=== PATIENT | female | born 2000 | race American Indian/Alaskan Native ===

== ENCOUNTER 2020-08-26 02:53 | Emergency (ER) | payer MEDICAID ==
[2020-08-26] MEDS ORDERED: ACETAMINOPHEN 325 MG TAB ONE (03:34)
[2020-08-26] MEDS ORDERED: ACETAMINOPHEN 325 MG TAB PO ONE (03:34)
[2020-08-26 04:23] LABS: Basophils % (Auto) 0.3 % (0.0-1.8); Eosinophils # (Auto) 0.1 K/mm3 (0.0-0.4); Eosinophils % (Auto) 0.9 % (0.0-4.3); Hematocrit 38.7 % (30.3-42.9); Hemoglobin 13.3 gm/dl (10.1-14.3); Lymphocytes # (Auto) 1.6 K/mm3 (1.2-5.4); Lymphocytes % (Auto) 12.4 % (13.4-35.0); Mean Corpuscular HGB Conc 34 % (30-34); Mean Corpuscular Volume 91 fl (79-97); Monocytes # (Auto) 0.8 K/mm3 (0.0-0.8); Monocytes % (Auto) 6.2 % (0.0-7.3); Platelet Count 269 K/mm3 (140-440); Red Blood Count 4.27 M/mm3 (3.65-5.03); Red Cell Distribution Width 12.5 % (13.2-15.2)
[2020-08-26] MEDS ORDERED: ONDANSETRON 4 MG/2 ML INJ IV ONE (04:45)
[2020-08-26] MEDS ORDERED: MORPHINE 4 MG/1 ML INJ IV ONE (04:45)
[2020-08-26] MEDS ORDERED: SODIUM CHLORIDE 0.9% 1000 ML 1,000 ML IV ONE (04:45)
--- NOTE | 2020-08-26 05:07 | Ultrasound Report ---
ULTRASOUND OBSTETRIC INDICATION / CLINICAL INFORMATION: vaginal bleeding. Clinical Gestational Age (GA): 13 weeks TECHNIQUE: Transabdominal. COMPARISON: None available. FINDINGS: No gestational sac is present within the uterus. The endometrium is markedly heterogeneous with ill d efined endometrium. A portion of the endometrial stripe is measured at 7 mm, but the majority of the endometrium is not clearly defined. No associated hypervascularity associated with the endometrium. ADNEXA: Either ovary identified due to overlying bowel gas. No obvious adnexal mass. FREE FLUID: Trace free fluid identified in the cul-de-sac. ADDITIONAL FINDINGS: None. IMPRESSION: 1. No IUP present. 2. Marked heterogeneity of the endometrium. This is more than likely secondary to hemorrhage. Retaine d products is thought to be less likely due to the lack of any visible vascularity on Doppler exam. 3. Limited evaluation of the adnexa due to excessive bowel gas. The ovaries were not visualized.. Signer Name: Ashleigh Lopez MD Signed: 08/26/2020 5:03 AM Workstation Name: [id number]
--- NOTE | 2020-08-26 06:22 | Emergency Department Report ---
ED Female HPI - General Chief complaint: Vaginal Bleeding Stated complaint: 13 WEEKS /BLEEDING Source: patient Mode of arrival: Ambulatory Limitations: No Limitations - History of Present Illness Initial comments: Patient is a A0 20-year-old -[place] female who is approximately 13 weeks gestation and who presents to the ED with complaint of acute onset pe rsistent severe pelvic pain with heavy vaginal bleeding for the last 8 hours. Patient states that the bleeding has been especially heavier in the last 4 hours despite using heavier pads to contain the bleeding. Patient states that she took Tylenol prior to arrival in the ED with no relief. Patient denies nausea, vomiting, dizziness, syncope, headache, dysuria, urinary frequency and urgency, diarrhea, fever, chills, chest pain or shortness of breath, loss of consciousness or back pain. MD Complaint: vaginal bleeding, pelvic pain -: Sudden, hour(s) (8) Location: suprapubic, other (vaginal) Radiation: non-radiating Severity: severe Severity scale (0 -10): 8 Quality: cramping, sharp Consistency: constant Improves with: none Worsens with: movement Are you Now?: Yes (Approx 13 weeks gestation) Associated Symptoms: denies other symptoms, vaginal bleeding, abdominal pain. denies: vaginal discharge, nausea/vomiting, fever/chills, headaches, loss of appetite, dysuria, hematuria, rash, seizure, shortness of breath, syncope, weakness - Related Data Sexually active: Yes : 1 Para: 0 A: 0 Previous Rx's Medication Instructions Recorded Last Taken Type Acetaminophen/Codeine [Tylenol 1 - 2 tab PO Q6H PRN #15 tab 08/26/20 Unknown Rx /Codeine # 3 tab] Ondansetron [Zofran Odt] 4 mg PO Q6H PRN #15 tab.rapdis 08/26/20 Unknown Rx Allergies Allergy/AdvReac Type Severity Reaction Status Date / Time No Known Allergies Allergy Verified 08/26/20 04:25 ED Review of Systems ROS: Stated complaint: 13 WEEKS /BLEEDING Other details as noted in HPI Constitutional: denies: chills, fever Eyes: denies: eye pain, eye discharge, vision change ENT: denies: ear pain, throat pain Respiratory: denies: cough, shortness of breath, wheezing Cardiovascular: denies: chest pain, palpitations Endocrine: no symptoms reported Gastrointestinal: abdominal pain (suprapubic). denies: nausea, vomiting, diarrhea, hematemesis Genitourinary: abnormal menses (heavy vaginal bleeding). denies: urgency, dysuria, frequency, discharge Musculoskeletal: denies: back pain, joint swelling, arthralgia Skin: denies: rash, lesions Neurological: denies: headache, weakness, paresthesias Psychiatric: denies: anxiety, depression Hematological/Lymphatic: denies: easy bleeding, easy bruising ED Past Medical Hx - Past Medical History Previous Medical History?: No - Surgical History Past Surgical History?: No - Social History Smoking Status: Never Smoker Substance Use Type: None - Medications Home Medications: Home Medications Medication Instructions Recorded Confirmed Last Taken Type Acetaminophen/Codeine [Tylenol 1 - 2 tab PO Q6H PRN #15 tab 08/26/20 Unknown Rx /Codeine # 3 tab] Ondansetron [Zofran Odt] 4 mg PO Q6H PRN #15 tab.rapdis 08/26/20 Unknown Rx ED Physical Exam - General Limitations: No Limitations General appearance: alert, in no apparent distress - Head Head exam: Present: atraumatic, normocephalic, normal inspection - Eye Eye exam: Present: normal appearance, PERRL, EOMI Pupils: Present: normal accommodation - ENT ENT exam: Present: normal exam, normal orophraynx, mucous membranes moist, TM's normal bilaterally, normal external ear exam - Neck Neck exam: Present: normal inspection, full ROM - Respiratory Respiratory exam: Present: normal lung sounds bilaterally. Absent: respiratory distress, wheezes, rales, rhonchi, chest wall tenderness, decreased breath sounds - Cardiovascular Cardiovascular Exam: Present: normal rhythm, tachycardia, normal heart sounds. Absent: systolic murmur, diastolic murmur, rubs, gallop - GI/Abdominal GI/Abdominal exam: Present: soft, tenderness (Palpable suprapubic tenderness), normal bowel sounds. Absent: guarding, rebound, hyperactive bowel sounds, hypoactive bowel sounds - External exam: Present: normal external exam Speculum exam: Present: normal speculum exam, vaginal bleeding Bi-manual exam: Present: normal bi-manual exam, other (Female histopath tech Ms Bolden present ) - Extremities Exam Extremities exam: Present: normal inspection, full ROM, normal capillary refill - Back Exam Back exam: Present: normal inspection, full ROM. Absent: tenderness, CVA tenderness (R), CVA tenderness (L), paraspinal tenderness, vertebral tenderness - Neurological Exam Neurological exam: Present: alert, oriented X3, CN II-XII intact, normal gait, reflexes normal - Psychiatric Psychiatric exam: Present: normal affect, normal mood - Skin Skin exam: Present: warm, dry, intact, normal color. Absent: rash ED Course Vital Signs 08/26/20 03:29 Temperature 98.5 F Pulse Rate 104 H Respiratory 18 Rate Blood Pressure 127/71 O2 Sat by Pulse 98 Oximetry ED Medical Decision Making - Lab Data Result diagrams: 08/26/20 03:48 - Radiology Data Radiology results: report reviewed, image reviewed Findings [address] [address] Ultrasound Report Signed Patient: LEILA PETTIT MR#: [id number] : 2000 Acct:[id number] Age/Sex: 20 / F ADM Date: 08/26/20 Loc: ED Attending Dr: Ordering Physician: Mala Rivera MD Date of Service: 08/26/20 Procedure(s): US OB <= 14 wk fetus add gest Accession Number(s): [id number] cc: Mala Rivera MD ULTRASOUND OBSTETRIC INDICATION / CLINICAL INFORMATION: vaginal bleeding. Clinical Gestational Age (GA): 13 weeks TECHNIQUE: Transabdominal. COMPARISON: None available. FINDINGS: No gestational sac is present within the uterus. The endometrium is markedly heterogeneous with ill defined endometrium. A portion of the endometrial stripe is measured at 7 mm, but the majority of the endometrium is not clearly defined. No associated hypervascularity associated with the endometrium. ADNEXA: Either ovary identified due to overlying bowel gas. No obvious adnexal mass. FREE FLUID: Trace free fluid identified in the cul-de-sac. ADDITIONAL FINDINGS: None. IMPRESSION: 1. No IUP present. 2. Marked heterogeneity of the endometrium. This is more than likely secondary to hemorrhage. Retained products is thought to be less likely due to the lack of any visible vascularity on Doppler exam. 3. Limited evaluation of the adnexa due to excessive bowel gas. The ovaries were not visualized.. Signer Name: Ashleigh Lopez MD Signed: 08/26/2020 5:03 AM Workstation Name: [id number] Transcribed By: JR Dictated By: Ashleigh Lopez MD Electronically Authenticated By: Ashleigh Lopez MD Signed Date/Time: 08/26/20 050 DD/ 045 TD/TT: - Medical Decision Making This is a A0 20-year-old -[place] female who is approximately 13 weeks gestation and who presents to the ED with complaint of acute onset persistent severe pelvic pain with heavy vaginal bleeding for the last 8 hours. Patient states that the bleeding has been especially heavier in the last 4 hours despite using heavier pads to contain the bleeding. Patient states that she took Tylenol prior to arrival in the ED with no relief. In the ED, patient is alert and oriented x3 and is not in distress. Patient was treated for pain in the ED and also given normal saline 1 L IV bolus x1 with antiemetics. Lab test results were reviewed and showed acute leukocytosis of 12,700 and hCG quant of 2742. Transvaginal ultrasound showed no IUP or heart tone or yolk sac. On reevaluation, patient's pain is well controlled medications. Patient was discharged home and advised to maintain a complete pelvic rest and to follow-up with the [facility] physician or return to the ED within 48 hours for serial hCG quant recheck to ascertain the viability of the . Patient was otherwise advised to return to the ED immediately if symptoms get worse. - Differential Diagnosis Threatened miscarriage; ovarian cyst; subchorionic bleed; UTI; kidney stone Critical care attestation.: If time is entered above; I have spent that time in minutes in the direct care of this critically ill patient, excluding procedure time. ED Disposition Clinical Impression: Threatened miscarriage, Abdominal pain during in second trimester Disposition: DC-01 TO HOME OR SELFCARE Is pt being admited?: No Does the pt Need Aspirin: No Condition: Stable Instructions: Vaginal Bleeding During , Second Trimester, Xljy-[id number], Abdominal Pain During , Kgas-zv-Bckt, Threatened Miscarriage Additional Instructions: All lab test results were reviewed and showed acute leukocytosis of 12,700, the transvaginal ultrasound showed no intrauterine at this time. The hCG quant is 2742 which for a suspected 13-week gestation is too low. This is consistent with threatened or inevitable . Therefore maintain a complete pelvic rest with no physical or strenuous activities, return to the ED or to your [facility] physician within 48 hours from today for a serial hCG quant studies recheck to ascertain the viability of the . Otherwise return to the ED immediately if symptoms get worse. Prescriptions: Acetaminophen/Codeine [Tylenol /Codeine # 3 tab] 1 - 2 tab PO Q6H PRN #15 tab PRN Reason: Pain , Severe (7-10) Ondansetron [Zofran Odt] 4 mg PO Q6H PRN #15 tab.rapdis PRN Reason: Nausea Referrals: LORRI UGALDE MD [Staff Physician] - 2-3 Days Time of Disposition: 06:23 Print Language: JAPANESE
[2020-08-26 06:58] VITALS: BP 120/82
== END 2020-08-26 06:33 | disposition home or self-care (01) ==
LOC: ED 02:53
DX: O20.0 Threatened abortion (principal); Z3A.13 13 weeks gestation of pregnancy
CPT/HCPCS: 36415; 76801; 84702; 85025; 86900; 86901; 96361; 96374; 96375; 99284; J2270; J2405; J7030; 76802

== ENCOUNTER 2021-06-21 16:32 | Outpatient (CLI) | payer MEDICAID ==
[2021-06-21] MEDS ORDERED: LACTATED RINGERS 500 ML IV ONE (17:27)
[2021-06-21] MEDS ORDERED: TERBUTALINE 1 MG/1 ML INJ SUB-Q ONE (19:44)
[2021-06-21 20:11] LABS: Bilirubin,Urine NEG (Negative); Blood,Urine MOD (Negative); Color,Urine Yellow (Yellow); Protein,Urine <15 mg/dL mg/dL (Negative); Urobilinogen,Urine < 2.0 mg/dL (<2.0)
[2021-06-21 20:52] VITALS: BP 111/58
[2021-06-21] MEDS ORDERED: NIFEdipine*For Tocolysis only* 10 MG CAPSULE PO ONE (21:00)
[2021-06-21] MEDS ORDERED: ceFAZolin/NS 1 GM/50 ML 1 GM/50 ML BAG IV ONE (21:00)
[2021-06-21] MEDS ORDERED: LACTATED RINGERS 1,000 ML ONE (21:51)
--- NOTE | 2021-06-21 22:06 | Ultrasound Report ---
ULTRASOUND OBSTETRIC LIMITED INDICATION / CLINICAL INFORMATION: cervical length check. COMPARISON: None available. FINDINGS: Cervical length measures 3.2 cm. A single live intrauterine is seen in cephalic presentation with a heart rate of 157 bpm. IMPRESSION: 1. Cervical length measures 3.2 cm. 2. No significant abnormalities. Signer Name: Jb Suarez MD Signed: 06/21/2021 10:02 PM Workstation Name: [id number]
== END 2021-06-21 23:00 | disposition home or self-care (01) ==
LOC: TRG 16:32 → APU 16:44 → TRG 23:00
PROVIDERS: ATTEND Obstetrics & Gynecology
DX: O26.893 Other specified pregnancy related conditions, third trimester (principal); R10.9 Unspecified abdominal pain; Z3A.33 33 weeks gestation of pregnancy
CPT/HCPCS: 36415; 59025; 76815; 81001; 82731; 96361; 96365; J0690; J7120; 96360

== ENCOUNTER 2021-07-23 15:48 | Inpatient (IN) | payer MEDICAID ==
[2021-07-23] MEDS ORDERED: TERBUTALINE 1 MG/1 ML INJ SUB-Q PRN (17:24)
[2021-07-23] MEDS ORDERED: miSOPROStol 200 MCG TAB PR PRN (17:24)
[2021-07-23] MEDS ORDERED: ONDANSETRON 4 MG/2 ML INJ IV PRN ×2 (17:24→23:08)
[2021-07-23] MEDS ORDERED: ePHEDrine SULFATE 50 MG/1 ML INJ IV PRN ×2 (17:24→18:44)
[2021-07-23] MEDS ORDERED: OXYTOCIN 10 UNIT/1 ML INJ IM PRN (17:24)
[2021-07-23] MEDS ORDERED: fentaNYL 100 MCG/2 ML INJ IV PRN (17:24)
[2021-07-23] MEDS ORDERED: LACTATED RINGERS 1,000 ML ONE (17:24)
[2021-07-23] MEDS ORDERED: NALOXONE 0.4 MG/1 ML INJ IV PRN (17:24)
[2021-07-23] MEDS ORDERED: MINERAL OIL 30 ML ORAL LIQD PO PRN (17:24)
[2021-07-23] MEDS ORDERED: BUTORPHANOL 2 MG/1 ML INJ IV PRN (17:24)
[2021-07-23] MEDS ORDERED: CARBOPROST TROMETHAMINE 250 MCG/1 ML INJ IM PRN (17:24)
[2021-07-23] MEDS ORDERED: ACETAMINOPHEN 325 MG TAB PO PRN ×2 (17:24→23:08)
[2021-07-23] MEDS ORDERED: AMPICILLIN/NS 2 GM/100 ML 2 GM/100 ML BAG IV ONE ×2 (17:24→17:25)
[2021-07-23] MEDS ORDERED: LIDOCAINE (2%) 20 MG/1 ML VIAL 20 ML MDV INFILTRATI ONE (17:24)
[2021-07-23] MEDS ORDERED: METHYLERGONOVINE MALEATE 0.2 MG/ML VIAL IM PRN (17:24)
[2021-07-23] MEDS ORDERED: LOPERAMIDE 2 MG CAP PO PRN (17:24)
[2021-07-23] MEDS: LACTATED RINGERS 1,000 ML IV SCH ×2 (17:39→18:51)
[2021-07-23] MEDS ORDERED: OXYTOCIN DRIP 30 UNITS/500 ML BAG IV SCH (18:00)
[2021-07-23 18:18] LABS: Hematocrit 40.1 % (30.3-42.9); Hemoglobin 13.9 gm/dl (10.1-14.3); Mean Corpuscular HGB Conc 35 % (30-34); Mean Corpuscular Volume 89 fl (79-97); Platelet Count 161 K/mm3 (140-440)
[2021-07-23] MEDS ORDERED: NALOXONE 2 MG/2 ML INJ IV PRN (18:44)
--- NOTE | 2021-07-23 18:45 | Anesthesia Consultation ---
Anesthesia Consult and Med Hx Date of service: 07/23/21 - Airway Anesthetic Teeth Evaluation: Good ROM Head & Neck: Adequate Mental/Hyoid Distance: Adequate Mallampati Class: Class II Intubation Access Assessment: Probably Good - Pulmonary Exam CTA: Yes - Cardiac Exam Cardiac Exam: RRR - Pre-Operative Health Status ASA Pre-Surgery Classification: ASA2 Proposed Anesthetic Plan: Epidural - Pulmonary Hx Asthma: Yes (last attack as a child) COPD: No Hx Pneumonia: No - Cardiovascular System Hx Hypertension: No - Central Nervous System Hx Seizures: Yes (infancy unknown etiology) Hx Psychiatric Problems: No - Endocrine Hx Renal Disease: No Hx End Stage Renal Disease: No Hx Hypothyroidism: No Hx Hyperthyroidism: No - Hematic Hx Anemia: No Hx Sickle Cell Disease: No - Other Systems Hx Alcohol Use: No
--- NOTE | 2021-07-23 18:48 | Progress Note ---
Labor Epidural - Labor Epidural Start Time: 18:31 Stop Time: 18:36 Performed by:: MATT URIBE Procedure: Patient is requesting epidural for labor pain. H&P, and labs reviewed. Procedure explained, questions answered, consent obtained. Patient in sitting position with blood pressure cuff and pulse ox on and working. Timeout performed immediately before start of procedure. Sterile chlorahexadine 0.5% prep/drape. 3 mL 1% lidocaine skin wheal at L[3]-L[4]. 17-gauge tuohy epidural needle advanced to [id number] with saline at [7] cm. Epidural catheter advanced to [12] cm, negative aspiration for blood and csf, negative test dose 3 ml 1.5% lidocaine with epinephrine. Epidural dexmedetomidine [30] mcg administered. Sterile sponge and tegaderm applied, followed by tape reinforcement. Patient tolerated procedure well. Arben SRNA
[2021-07-23] MEDS ORDERED: fentaNYL-BUPIV 2 MCG/ML-0.125% 200 MCG/100 ML BAG EPIDURAL SCH (19:00)
--- NOTE | 2021-07-23 21:44 | History and Physical Report ---
History of Present Illness Date of examination: 07/23/21 Date of admission: 07/23/2021 Chief complaint: Contractions History of present illness: 20-year-old G [id number] at 38+3 weeks who presents to labor and delivery in active labor with advanced cervical dilatation. The patient denies leakage of fluid. The patient initiated care in first trimester. 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 The patient is GBS positive Past History Past Medical History: asthma Past Surgical History: other (foot surgery) Social history: single - Obstetrical History Expected Date of Delivery: 08/03/21 Actual Gestation: 38 Week(s) 3 Day(s) : 2 Para: 0 Hx # Term Pregnancies: 0 Number of Pregnancies: 0 Spontaneous Abortions: 1 Induced : 0 Number of Living Children: 0 Medications and Allergies Allergies Allergy/AdvReac Type Severity Reaction Status Date / Time No Known Allergies Allergy Verified 08/26/20 04:25 Home Medications Medication Instructions Recorded Confirmed Last Taken Type Vitamin 1 tab PO DAILY 07/23/21 07/23/21 07/22/21 23:59 History Active Meds: Active Medications Acetaminophen (Acetaminophen 325 Mg Tab) 650 mg PO Q4H PRN PRN Reason: Pain, Mild (1-3) Butorphanol Tartrate (Butorphanol 2 Mg/1 Ml Inj) 1 mg IV Q2H PRN PRN Reason: Pain, Moderate(4-6) LABOR PAIN Carboprost Tromethamine (Carboprost Tromethamine 250 Mcg/1 Ml Inj) 250 mcg IM ONCE PRN PRN Reason: Uterine Bleeding Ephedrine Sulfate (Ephedrine Sulfate 50 Mg/1 Ml Inj) 10 mg IV Q2M PRN PRN Reason: Hypotension Ephedrine Sulfate (Ephedrine Sulfate 50 Mg/1 Ml Inj) 10 mg IV Q2M PRN PRN Reason: Hypotension Fentanyl (Fentanyl 100 Mcg/2 Ml Inj) 100 mcg IV Q2H PRN PRN Reason: Pain,Severe (7-10) LABOR PAIN Last Admin: 07/23/21 17:50 Dose: 100 mcg Documented by: Oxytocin/Sodium Chloride (Pitocin/Ns 30 Unit/500ml) 30 units in 500 mls @ 2 mls/hr IV TITR JANINE; Protocol Last Admin: 07/23/21 21:04 Dose: 2 ml/hr, 2 mls/hr Documented by: Lactated Ringer's (Lactated Ringers) 1,000 mls @ 125 mls/hr IV DIRECT JANINE Last Infusion: 07/23/21 18:54 Dose: 999 mls/hr Documented by: Ampicillin Sodium (Ampicillin/Ns 1 Gm/50 Ml) 1 gm in 50 mls @ 100 mls/hr IV Q4H JANINE; Protocol Last Admin: 07/23/21 21:38 Dose: 100 mls/hr Documented by: Fentanyl/Bupivacaine/Sodium Chlor (Fentanyl-Bupiv 2 Mcg/Ml-0.125%) 200 mcg in 100 mls @ 12 mls/hr EPIDURAL TITR JANINE; Protocol Last Admin: 07/23/21 19:20 Dose: 12 mls/hr Documented by: Loperamide HCl (Loperamide 2 Mg Cap) 2 mg PO ONCE PRN PRN Reason: give with Hemabate Methylergonovine Maleate (Methylergonovine Maleate 0.2 Mg/Ml Vial) 0.2 mg IM ONCE PRN PRN Reason: Uterine Bleeding Mineral Oil (Mineral Oil 30 Ml Oral Liqd) 30 ml PO QHS PRN PRN Reason: Constipation Misoprostol (Misoprostol 200 Mcg Tab) 800 mcg CA ONCE PRN PRN Reason: Uterine Bleeding Naloxone HCl (Naloxone 0.4 Mg/1 Ml Inj) 0.1 mg IV Q2MIN PRN PRN Reason: Res Rate </= 8 or 02 SAT < 92% Naloxone HCl (Naloxone 2 Mg/2 Ml Inj) 0.2 mg IV Q5M PRN PRN Reason: Respiratory sedation Ondansetron HCl (Ondansetron 4 Mg/2 Ml Inj) 4 mg IV Q8H PRN PRN Reason: Nausea And Vomiting Oxytocin (Oxytocin 10 Unit/1 Ml Inj) 10 unit IM ONCE PRN PRN Reason: Uterine Bleeding Terbutaline Sulfate (Terbutaline 1 Mg/1 Ml Inj) 0.25 mg SUB-Q ONCE PRN PRN Reason: Hyperstimulation/Hypertonicity Review of Systems All systems: negative Genitourinary: contractions, no leakage of fluid - Vital Signs Vital signs: Vital Signs Pulse BP Pulse Ox 108 H 119/74 94 07/23/21 16:29 07/23/21 16:29 07/23/21 16:29 Temp Pulse Resp BP Pulse Ox 97.7 F 83 20 115/61 100 07/23/21 19:53 07/23/21 21:39 07/23/21 19:53 07/23/21 21:39 07/23/21 21:35 - Physical Exam Breasts: Positive: deferred Cardiovascular: Regular rate Lungs: Positive: Clear to auscultation - Obstetrical Cervical Dilatation: 7 Results Result Diagrams: 07/23/21 17:00 Abnormal lab results 07/23/21 Range/Units 17:00 WBC 4.4 L (4.5-11.0) K/mm3 MCHC 35 H (30-34) % RDW 13.0 L (13.2-15.2) % All other labs normal. Assessment and Plan - Patient Problems (1) Active labor at term Current Visit: Yes Status: Acute Plan to address problem: admit for labor initiate antibiotics (2) Group B streptococcal infection Current Visit: Yes Status: Acute
[2021-07-23] MEDS ORDERED: AMPICILLIN/NS 1 GM/50 ML 1 GM/50 ML BAG IV SCH (22:00)
[2021-07-23] MEDS ORDERED: diphenhydrAMINE 25 MG CAP PO PRN (23:08)
[2021-07-23] MEDS ORDERED: LANOLIN/ZINC/DIMETHICONE (LANSINOH) 7 GM TP PRN (23:08)
[2021-07-23] MEDS ORDERED: PROMETHAZINE 25 MG RECT SUPP PR PRN (23:08)
[2021-07-23] MEDS ORDERED: PROMETHAZINE 25 MG TAB PO PRN (23:08)
[2021-07-23] MEDS ORDERED: WITCH HAZEL/ GLYCERIN PAD TP PRN (23:08)
[2021-07-23] MEDS ORDERED: HYDROcodone/ACETAMINOPHEN 5-325 MG TAB PO PRN (23:08)
[2021-07-23] MEDS ORDERED: MAGNESIUM HYDROXIDE (MOM) ORAL LIQD UDC PO PRN (23:08)
--- NOTE | 2021-07-23 23:08 | Procedure Note ---
OB Delivery Note - Delivery Date of Delivery: 07/23/21 Surgeon: LORRI UGALDE Estimated blood loss: 200cc - Vaginal Delivery presentation: vertex Delivery position: OA Delivery monitor: external FHT, external uterine Route of delivery: Delivery placenta: spontaneous Episiotomy: none Delivery laceration: none Anesthesia: epidural - A at 1 minute: 8 at 5 minutes: 9 Gender: Female (weight 8lbs 0oz)
[2021-07-24] MEDS: IBUPROFEN 600 MG TAB PO SCH ×3 (02:41→15:01)
--- NOTE | 2021-07-24 07:58 | Progress Note ---
Assessment and Plan - Patient Problems (1) Status post normal vaginal delivery Current Visit: Yes Status: Acute Plan to address problem: Continue routine PP orders Anticipate d/c home tomorrow if stable Subjective - Subjective Date of service: 07/24/21 Principal diagnosis: S/P ; PPD#1 Interval history: 20-year-old G [id number] at 38+3 weeks who presents to labor and delivery in active labor with advanced cervical dilatation. The patient denies leakage of fluid. The patient initiated care in first trimester. 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 The patient is GBS positive Patient reports: appetite normal, voiding normally, pain well controlled, flatus, ambulating normally Milnor: doing well, bottle feeding Objective - Vital Signs Latest vital signs: Vital Signs Temp Pulse Resp BP BP Pulse Ox Pulse Ox 07/24/21 03:41 18 07/24/21 02:41 18 07/24/21 02:13 100 07/24/21 01:30 99.0 F 105 H 18 133/79 98 07/24/21 01:05 116 H 98 07/24/21 01:04 123 H 94 07/24/21 01:00 113 H 99 07/24/21 00:59 89 75 L 07/24/21 00:55 117 H 97 07/24/21 00:50 123 H 97 07/24/21 00:45 113 H 97 07/24/21 00:40 117 H 98 07/24/21 00:35 124 H 98 07/24/21 00:33 133 H 94 07/24/21 00:30 143 H 98 07/24/21 00:25 111 H 96 07/24/21 00:20 111 H 97 07/24/21 00:19 113 H 91 07/24/21 00:15 107 H 98 07/24/21 00:14 105 H 119/88 07/24/21 00:10 108 H 98 07/24/21 00:05 111 H 98 07/24/21 00:01 60 89 07/24/21 00:00 105 H 98 07/23/21 23:55 107 H 97 07/23/21 23:50 94 H 99 07/23/21 23:45 95 H 98 07/23/21 23:44 99 H 119/84 07/23/21 23:40 101 H 98 10/05/21 23:39 81 85 07/23/21 23:35 89 99 07/23/21 23:30 100 H 97 07/23/21 23:25 93 H 98 07/23/21 23:20 95 H 98 07/23/21 23:15 98 H 108/56 99 07/23/21 23:10 105 H 99 07/23/21 23:05 103 H 99 07/23/21 23:00 110 H 99 07/23/21 22:55 96 H 99 07/23/21 22:53 71 86 07/23/21 22:50 104 H 99 07/23/21 22:47 83 82 L 07/23/21 22:45 46 L 76 L 07/23/21 22:41 83 78 L 07/23/21 22:40 92 H 98 07/23/21 22:35 97 H 99 07/23/21 22:30 89 100 07/23/21 22:29 96 H 90 07/23/21 22:25 94 H 99 07/23/21 22:20 84 99 07/23/21 22:15 87 97 07/23/21 22:14 85 120/64 07/23/21 22:10 86 97 07/23/21 22:05 77 98 07/23/21 22:00 82 97 07/23/21 21:55 77 98 07/23/21 21:52 74 86 07/23/21 21:50 82 97 07/23/21 21:45 85 96 07/23/21 21:40 82 97 07/23/21 21:39 83 115/61 07/23/21 21:35 81 100 07/23/21 21:30 84 98 07/23/21 21:25 84 97 07/23/21 21:23 75 111/65 07/23/21 21:20 75 98 07/23/21 21:15 81 99 07/23/21 21:10 81 99 07/23/21 21:07 81 96/58 07/23/21 21:05 82 100 07/23/21 21:00 86 97 07/23/21 20:55 81 100 07/23/21 20:53 77 118/66 07/23/21 20:50 81 99 07/23/21 20:45 84 97 07/23/21 20:40 93 H 95 07/23/21 20:39 92 H 121/53 94 07/23/21 20:35 79 96 07/23/21 20:30 80 94 07/23/21 20:28 80 94 07/23/21 20:25 75 95 07/23/21 20:24 83 98/55 07/23/21 20:21 87 93 07/23/21 20:20 88 96 07/23/21 20:15 89 94 07/23/21 20:14 86 94 07/23/21 20:10 88 95 07/23/21 20:08 86 94 07/23/21 20:07 87 103/56 07/23/21 20:05 82 95 07/23/21 20:03 86 07/23/21 20:00 77 94 07/23/21 19:58 80 94 07/23/21 19:55 79 94 07/23/21 19:54 94 07/23/21 19:53 97.7 F 20 94 07/23/21 19:52 80 114/56 07/23/21 19:50 76 94 07/23/21 19:48 79 94 07/23/21 19:45 78 96 07/23/21 19:44 76 107/66 07/23/21 19:40 83 94 07/23/21 19:39 83 101/68 07/23/21 19:38 81 94 07/23/21 19:36 79 93/53 07/23/21 19:35 80 95 07/23/21 19:31 81 94 07/23/21 19:30 78 106/54 95 07/23/21 19:25 82 95 07/23/21 19:24 80 107/55 94 07/23/21 19:20 84 99/57 95 07/23/21 19:19 82 115/65 07/23/21 19:18 82 94 07/23/21 19:15 86 92 07/23/21 19:14 82 102/60 07/23/21 19:10 85 102/55 93 07/23/21 19:07 82 94 07/23/21 19:05 85 93 07/23/21 19:04 87 97/58 07/23/21 19:00 89 94 07/23/21 18:59 93 H 96/56 07/23/21 18:55 85 92 10/05/21 18:54 93 H 91/55 10/05/21 18:50 98 H 94/51 92 07/23/21 18:49 92 H 89/50 07/23/21 18:48 92 H 94 07/23/21 18:47 91 H 97/54 07/23/21 18:45 99.0 F 103 H 18 103/58 93 07/23/21 18:40 109 H 94 07/23/21 18:39 96 H 110/69 07/23/21 18:37 101 H 114/64 07/23/21 18:34 97 H 99 07/23/21 18:32 96 H 111/66 07/23/21 18:29 100 H 97 07/23/21 18:24 106 H 96 07/23/21 18:22 92 H 94 07/23/21 18:19 98 H 95 07/23/21 18:14 101 H 94 07/23/21 18:09 92 H 94 07/23/21 18:07 99 H 94 07/23/21 18:04 97 H 95 07/23/21 18:02 93 H 94 07/23/21 17:59 97 H 95 07/23/21 17:56 90 94 07/23/21 17:54 96 H 97 07/23/21 17:52 99 H 125/60 07/23/21 17:49 104 H 95 07/23/21 17:44 101 H 97 07/23/21 17:40 96 07/23/21 17:39 104 H 99 07/23/21 17:34 105 H 96 07/23/21 17:29 100 H 96 07/23/21 17:24 105 H 93 07/23/21 17:09 99 H 94 07/23/21 17:04 104 H 87 07/23/21 16:59 109 H 94 07/23/21 16:57 104 H 94 07/23/21 16:54 111 H 94 07/23/21 16:51 98 H 94 07/23/21 16:49 103 H 95 07/23/21 16:44 99 H 95 07/23/21 16:41 103 H 94 07/23/21 16:39 103 H 95 07/23/21 16:36 104 H 94 07/23/21 16:34 101 H 95 07/23/21 16:30 99 F 109 H 20 119/74 95 10/05/21 16:29 107 H 119/74 94 Intake and Output 07/23/21 07/23/21 07/24/21 15:59 23:59 07:59 Intake Total 1006.25 240 Output Total 1500 Balance 1006.25 -1260 Intake: IV 1006.25 Lactated Ringers 1,000 ml 1006.25 @ 125 mls/hr IV DIRECT JANINE Rx#:[id number] Oral 240 Output: Urine 1500 Void 1500 Other: Total, Intake Amount 240 Total, Output Amount 800 Weight 87.543 kg Estimated Blood Loss 200 - Exam Breasts: Present: normal Cardiovascular: Present: Regular rate Lungs: Present: Normal air movement Abdomen: Present: soft, tenderness Uterus: Present: firm, fundal height below umbilicus (U-2) Extremities: Present: normal Deep Tendon Reflex Grade: Normal +2 - Labs Labs: Abnormal lab results 07/23/21 Range/Units 17:00 WBC 4.4 L (4.5-11.0) K/mm3 MCHC 35 H (30-34) % RDW 13.0 L (13.2-15.2) %
--- NOTE | 2021-07-24 11:11 | Post Anesthesia Evaluation ---
- Post Anesthesia Evaluation Patient Participated: Yes Airway Patent: Yes Stable Respiratory Function: Yes Nausea/Vomiting: No Temp > 96.8F: Yes Pain Manageable: Yes Adequeate Hydration: Yes Anesthesia Complications: No Block Receding Appropriately: Yes
[2021-07-24 12:51] LABS: Hematocrit 34.4 % (30.3-42.9); Hemoglobin 11.9 gm/dl (10.1-14.3)
[2021-07-24] MEDS: guaiFENesin 100 MG/5 ML ORAL LIQD PO PRN (16:38)
[2021-07-25] MEDS: IBUPROFEN 600 MG TAB PO SCH ×3 (00:36→09:28)
--- NOTE | 2021-07-25 07:59 | Discharge Summary ---
Providers - Providers Date of Admission: 07/23/21 17:24 Date of discharge: 07/25/21 Attending physician: LORRI UGALDE Primary care physician: LORRI UGALDE Hospitalization Reason for admission: active labor Delivery: Episiotomy: none Laceration: none Other procedures: none complications: none Discharge diagnosis: IUP at term delivered baby: female Hospital course: 20-year-old G [id number] at 38+3 weeks who presents to labor and delivery in active labor with advanced cervical dilatation. The patient denies leakage of fluid. The patient initiated care in first trimester. 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 The patient is GBS positive. Delivered viable female. Covid test was positive. Condition at discharge: Good Disposition: 01 HOME / SELF CARE / HOMELESS - Discharge Diagnoses (1) Status post normal vaginal delivery Status: Acute (2) COVID-19 determined by clinical diagnostic criteria Status: Acute Comment: Asymptomatic Plan - Discharge Medications Prescriptions: Ibuprofen [Motrin 600 MG tab] 600 mg PO Q8H 7 Days #21 tablet - Provider Discharge Summary Activity: routine, no sex for 6 weeks, no heavy lifting 4 weeks, no strenuous exercise Diet: routine Instructions: routine Additional instructions: [] Smoking cessation referral if applicable(refer to patient education folder for contact #) [] Refer to [facility]'s [facility] Booklet Call your doctor immediately for: * Fever > 100.5 * Heavy vaginal bleeding ( >1 pad per hour) * Severe persistent headache * Shortness of breath * Reddened, hot, painful area to leg or breast * Present with negative Covid test for 6 week PP visit - Follow up plan Follow up: LORRI UGALDE MD [Primary Care Provider] - 6 Weeks
[2021-07-25] MEDS: guaiFENesin 100 MG/5 ML ORAL LIQD PO PRN (09:28)
[2021-07-25 16:58] VITALS: BP 113/73
== END 2021-07-25 17:50 | disposition home or self-care (01) | DRG 774 ==
LOC: TRG 15:48 → APU 15:50 → LD 17:12 → TRG 17:24 → LD 17:25 → OB 07-24 01:25
PROVIDERS: ADMIT Obstetrics & Gynecology; ATTEND Obstetrics & Gynecology
PROC: 10E0XZZ Delivery of Products of Conception, External Approach (ICD-10-PCS; principal; 2021-07-23)
PROC: 3E0R3BZ Introduction of Anesthetic Agent into Spinal Canal, Percutaneous Approach (ICD-10-PCS; 2021-07-23)
PROC: 00HU33Z Insertion of Infusion Device into Spinal Canal, Percutaneous Approach (ICD-10-PCS; 2021-07-23)
DX: O98.52 Other viral diseases complicating childbirth (principal); Z37.0 Single live birth; U07.1 COVID-19; O99.824 Streptococcus B carrier state complicating childbirth; Z3A.38 38 weeks gestation of pregnancy
CPT/HCPCS: 36415; 85014; 85018; 85027; 85461; 86592; 86850; 86900; 86901; G0378; J0290; J2590; J3010; J7120; U0003

== ENCOUNTER 2021-11-09 17:46 | Emergency (ER) | payer MEDICAID | END 2021-11-10 07:05 | disposition left against medical advice (07) | LOC: ED 17:46 | DX: R11.0 Nausea (principal); R53.1 Weakness; Z53.21 Procedure and treatment not carried out due to patient leaving prior to being seen by health care provider ==